=== PATIENT | male | born 1950 | race Caucasian/White ===

== ENCOUNTER 2018-05-25 05:46 | Day surgery (SDC) | payer OTHER ==
[2018-05-25] MEDS ORDERED: LACTATED RINGERS 1,000 ML ONE (07:03)
--- NOTE | 2018-05-25 09:51 | OP ---
DATE OF PROCEDURE: 05/25/18 PREPROCEDURE DIAGNOSIS: 1. Heartburn and regurgitation, refractory to empiric therapy. POSTPROCEDURE DIAGNOSIS: 1. Hiatal hernia. 2. Gastritis. PROCEDURE: 1. Upper endoscopy with biopsy. SURGEON: Stalin Parker MD. SEDATION: Monitored anesthesia care. ESTIMATED BLOOD LOSS: Less than 5 mL. PROCEDURE: Informed consent was obtained prior to sedation. The preprocedure cardiopulmonary assessment was satisfactory. The patient was brought to the Endoscopy Suite and placed in the left lateral decubitus position. The patient was then sedated by the anesthesia team. The tip of the Olympus EGD scope was inserted into oropharynx and advanced under direct visualization across the cricopharyngeus muscle into the esophageal lumen. The entire esophagus appeared normal. There was no evidence of Jackson's esophagus. There was a 3 cm hiatal hernia. Retroflexed view of the cardia confirmed this hernia. The remaining examination of the stomach showed diffuse erythema with erosions in the antrum. Biopsies were taken with cold forceps from the antrum for the evaluation of H. pylori. Examination of the first and second portions of the duodenum was normal. The endoscope was then withdrawn and the procedure terminated. RECOMMENDATION: 1. Discharge the patient home with escort. 2. Resume regular diet. 3. Continue present medications. 4. Followup in my office as previously scheduled. [id number]
[2018-05-25] MEDS ORDERED: LIDOCAINE 1% 10 ML VIAL INJ ONE (10:00)
[2018-05-25] MEDS ORDERED: PROPOFOL 200 MG/20 ML VIAL IV ONE (10:00)
[2018-05-25] MEDS ORDERED: KETOROLAC TROMETHAMINE INJ 30 MG/ML VIAL IV ONE (10:00)
[2018-05-25] MEDS ORDERED: DEXAMETHASONE INJ 10 MG/ML VIAL IV ONE (10:00)
[2018-05-25 10:08] VITALS: O2SAT 97
[2018-05-25 10:16] VITALS: BP 165/91; TEMP 97.3
== END 2018-05-25 10:05 | disposition home or self-care (01) ==
LOC: AMB 05:46
PROVIDERS: ATTEND Internal Medicine Gastroenterology
DX: K21.9 Gastro-esophageal reflux disease without esophagitis (principal); K29.50 Unspecified chronic gastritis without bleeding; K44.9 Diaphragmatic hernia without obstruction or gangrene; I10 Essential (primary) hypertension; E66.9 Obesity, unspecified; F17.220 Nicotine dependence, chewing tobacco, uncomplicated; Z79.82 Long term (current) use of aspirin; Z79.899 Other long term (current) drug therapy
CPT/HCPCS: 00731; 43239; J1100; J1885; J3490; J7120